=== PATIENT | male | born 1955 | race Caucasian/White ===

== ENCOUNTER 2024-07-22 08:02 | Day surgery (SDC) | payer OTHER, MEDICAID, SELFPAY ==
[2024-07-22] MEDS: LACTATED RINGERS 1,000 ML 42 ML IV (08:56)
[2024-07-22 09:03] VITALS: BP 127/75; PULSE 68; RESP 17; TEMP 36.2; O2SAT 97
--- NOTE | 2024-07-22 09:47 | P.HP_ITS ---
History of Present Illness History of Present Illness Date Patient Seen: 07/22/24 Time Patient Seen: 09:53 Chief complaint: SDC Narrative: H/o colon polyps. No new symptoms. last scope 5years. [facility] Social History Smoking Status: Never smoker alcohol intake: current Meds Home Medications and Allergies Home Medications Medication Instructions Recorded Confirmed Type atorvastatin 80 mg tablet 80 mg PO ONCE PM 07/22/24 07/22/24 History clopidogrel 75 mg tablet 75 mg PO DAILY 07/22/24 07/22/24 History ezetimibe 10 mg tablet 10 mg PO DAILY 07/22/24 07/22/24 History nortriptyline 75 mg capsule 75 mg PO ONCE PM 07/22/24 07/22/24 History tadalafil 5 mg tablet 5 mg PO DAILY 07/22/24 07/22/24 History tamsulosin 0.4 mg capsule 0.4 mg PO DAILY 07/22/24 07/22/24 History Allergies Allergy/AdvReac Type Severity Reaction Status Date / Time Sulfa (Sulfonamide Allergy Intermediate Hives Verified 07/22/24 09:03 Antibiotics) Review of Systems Review of Systems ROS: Yes All systems reviewed with the patient and are negative except as otherwise documented Exam Vital Signs (past 8 hours): - 07/22/24 09:03 Temperature 97.2 F L Pulse Rate 68 Respiratory Rate 17 Blood Pressure 127/75 Pulse Oximetry 97 Oxygen Delivery Method Room Air Oxygen Delivery Method Room Air Const General: cooperative, healthy appearing and comfortable Orientation: alert, awake and oriented x3 HENMT Head: normocephalic and atraumatic Eyes General: appearance normal, both eyes and all related structures Sclera: sclerae normal Neck Neck: trachea midline and No JVD Chest Chest: normal inspection of the chest Resp Effort & Inspection: normal respiratory effort and able to speak in complete sentences Cardio Rate: regular rate Rhythm: regular rhythm GI Palpation: soft Skin General: turgor normal and No atrophy Neuro General: patient alert, patient awake and patient oriented x3 Cranial Nerves: tongue midline Psych Appearance: grossly normal Mental Status: mental status grossly normal Judgment: judgment good Assessment & Plan Assessment & Plan narrative: H/o colon polyps Plan: colonoscopy with anesthesia Time-Based Coding :: [TOTAL MINUTES] spent with patient and on the chart (including review of chart, obtaining history, exam, reviewing outside data, placing orders, documenting exam and treatment plan, and counseling patient) on [DATE].
--- NOTE | 2024-07-22 09:56 | PM.OP.COLON ---
Operative Date/Time/Diagnoses Date of procedure: 07/22/24 Time of procedure: 09:56 Pre-op diagnosis: h/o colon polyps Post-op diagnosis: same Procedure & Clinicians Study performed: colonoscopy Indications: History of colon polyps Surgeon: Yasemin Garces Procedure Notes Procedure in detail: Preop diagnosis: History of colon polyps Postop diagnosis: Same Operative procedure: Colonoscopy with anesthesia Surgeon: Marjorie Garces MD Findings: No polyps identified. No significant diverticulosis. Procedure: Patient placed in lateral position. Rectal exam performed showing normal tone no masses. Colonoscope inserted into the rectum and advanced to ileocecal valve with minimal difficulty. Insufflation extraction scope and the above findings. Retroflex was included in the rectum. Impression: No polyps identified. No significant diverticulosis. Plan: Repeat colonoscopy 5 years due to history of colon polyps Specimen(s): none sent Complications: none Post-procedure Recommendations: Colonoscopy in 5 years Follow up: as needed Disposition: PACU
[2024-07-22 10:15] VITALS: BP 110/73; PULSE 64; RESP 12; TEMP 36.4; O2SAT 97
[2024-07-22 10:23] VITALS: BP 113/74; PULSE 61; RESP 12; TEMP 36.4; O2SAT 98
[2024-07-22 10:28] VITALS: BP 111/68; PULSE 60; RESP 12; TEMP 36.4; O2SAT 98
[2024-07-22 10:36] VITALS: BP 115/70; PULSE 61; RESP 14; TEMP 36.4; O2SAT 98
== END 2024-07-22 10:46 | disposition home or self-care (01) ==
PROVIDERS: PCP Internal Medicine; Referring Provider Surgery; Visit Provider Surgery
PROC: 0DJD8ZZ Inspection of Lower Intestinal Tract, Via Natural or Artificial Opening Endoscopic (ICD-10-PCS; CPT 45378; principal; 2024-07-22 09:45)
DX: Z12.11 Encounter for screening for malignant neoplasm of colon (principal); Z86.010 Personal history of colon polyps
CPT/HCPCS: G0121; J2704